=== PATIENT | female | born 1950 | race Caucasian/White ===

== ENCOUNTER 2020-06-30 16:49 | Inpatient (IN) | payer MEDICARE, OTHER ==
[~2020-06-30] VITALS: Ht 152.4 cm; Wt 49.9 kg
[2020-06-30] MEDS ORDERED: ACETAMINOPHEN 325 MG TABLET PO ONE (17:00)
[2020-06-30] MEDS ORDERED: ACETAMINOPHEN 325 MG TABLET ONE (17:03)
--- NOTE | 2020-06-30 17:05 | NUR ---
pt BIB [facility] FROM HOME,C/O RIGHT KNEE PAIN/BRUISE,S/P FALL WHILE WALKING WITH A WALKER LAST NIGHT. VS CHECKED. SEEN BY
[2020-06-30] MEDS ORDERED: GEMF600T5 PO (17:16)
[2020-06-30] MEDS ORDERED: METH5TAB6 PO (17:16)
[2020-06-30] MEDS ORDERED: ZOLP10TA2 PO (17:16)
[2020-06-30] MEDS ORDERED: LOSA1TAB36 PO (17:16)
[2020-06-30] MEDS ORDERED: ACET1TAB23 PO (17:16)
[2020-06-30] MEDS ORDERED: ESCI10TA PO (17:16)
[2020-06-30] MEDS ORDERED: FOLI0.8C PO (17:16)
[2020-06-30] MEDS ORDERED: ASPI-495 PO (17:16)
--- NOTE | 2020-06-30 17:18 | NUR ---
xray by bedside
[2020-06-30 17:44] LABS: BASOPHILS # (AUTO) 0.1 /CMM (0.0-0.2); BASOPHILS % (AUTO) 0.7 % (0.0-2.0); EOSINOPHILS % (AUTO) 0.1 % (0.0-6.0); HEMATOCRIT 36 % (33-45); HEMOGLOBIN 12.3 g/dL (11.5-14.8); LYMPHOCYTES # (AUTO) 0.8 /CMM (0.8-4.8); MEAN CORPUSCULAR HGB CONC 34 g/dl (31.0-36.0); MEAN CORPUSCULAR VOLUME 94 fL (82-100); MONOCYTES # (AUTO) 0.6 /CMM (0.1-1.30); MONOCYTES % (AUTO) 5.6 % (2.0-12.0); NEUTROPHILS % (AUTO) 85.6 % (43.0-81.0); PLATELET COUNT (AUTO) 415 /CMM (150-450); RED BLOOD CELL COUNT(AUTO) 3.85 MIL/uL (4.0-5.2); WHITE BLOOD COUNT (AUTO) 10.5 K/uL (4.3-11.0)
--- NOTE | 2020-06-30 17:53 | NUR ---
covid swab done sent to lab
[2020-06-30 17:54] LABS: CALCIUM, SERUM 9.2 mg/dL (8.5-10.1); CREATININE 0.4 mg/dL (0.6-1.3)
--- NOTE | 2020-06-30 18:34 | NUR ---
CALLED OFFICE OF DR DEXTER FOR CONSULT, SILVIA BUSTILLOS
--- NOTE | 2020-06-30 18:55 | NUR ---
DR DEXTER SPEAKING WITH DR DELGADO
--- NOTE | 2020-06-30 19:05 | NUR ---
PT AAOX4, VSS, RESPIRATIONS EVEN AND UNLABORED W/ NAD NOTED. PT CONNECTED TO THE MONITOR AND POX.CALL LIGHT WITHIN REACH. WILL CONTINUE TO MONITOR THE PT.
--- NOTE | 2020-06-30 19:32 | NUR ---
REC'D NEG COVID RESULTS. AWARE. CALLED NURSING SUP FOR BED
--- NOTE | 2020-06-30 19:50 | NUR ---
Report received from ER nurse. Patient is being admitted for closed fracture of right distal femur.
--- NOTE | 2020-06-30 19:57 | NUR ---
REPORT GIVEN TO JADA TRUJILLO FOR ARACELIS
[2020-06-30] MEDS ORDERED: ONDANSETRON HCL/PF 4 MG/2 ML VIAL IVP PRN (20:00)
[2020-06-30] MEDS ORDERED: HYDROCODONE/APAP 5/325MG TABLET PO PRN (20:00)
[2020-06-30] MEDS ORDERED: MAGNESIUM HYDROXIDE 30 ML UDC PO PRN (20:00)
[2020-06-30] MEDS ORDERED: ACETAMINOPHEN 325 MG TABLET PO PRN (20:00)
[2020-06-30] MEDS ORDERED: HEPARIN SODIUM, PORCINE 5000 UNITS/1 ML VIAL SQ ONE (20:00)
--- NOTE | 2020-06-30 20:15 | NUR ---
Patient transferred to [facility]. Patient is a 69 y/o female admitted for closed fracture of right distal femur, S/P fall at home, under Lizzie Mcadams DNP. Alert, oriented x 4. Able to make needs known. No s/s of acute distress and discomfort noted. Patient noted with IV on right AC 18 g, patent and intact, no s/s of infiltration noted, no swelling. Noted with discoloration and swelling on right knee, and swelling on right foot. Patient also noted with redness on sacral area. Patient with orders for NPO after midnight for surgery tomorrow at 13:[address] Ny (Ortho) as ordered. Patient oriented to the environment. Assisted with ADLs and transfers. Fall precautions observed. Call light within reach.
--- NOTE | 2020-06-30 20:18 | NUR ---
PATIENT BROUGHT TO ASSIGNED ROOM FOR ARACELIS.
[2020-06-30 20:50] VITALS: BP 162/81
[2020-07-01] VITALS (10 sets, daily range): BP systolic 125–148; BP diastolic 57–88
--- NOTE | 2020-07-01 01:00 | NUR ---
Patient with orders for Heparin 5,000 units sq x 1. Order clarified with backshoe person MERCHANDISE TEAM MANAGER rere Garcia ok to give. Noted and carried out.
[2020-07-01] MEDS ORDERED: HEPARIN SODIUM, PORCINE 5000 UNITS/1 ML VIAL ONE (01:11)
[2020-07-01] MEDS: MORPHINE SULFATE INJ 2 MG/ML DISP.SYRIN IV PRN ×4 (03:12→21:54)
[2020-07-01] MEDS: IV NS 0.9% 1,000 ML IV PRN ×2 (04:02→12:33)
[2020-07-01 06:43] LABS: BASOPHILS # (AUTO) 0.1 /CMM (0.0-0.2); BASOPHILS % (AUTO) 1.3 % (0.0-2.0); HEMATOCRIT 35 % (33-45); HEMOGLOBIN 11.8 g/dL (11.5-14.8); LYMPHOCYTES # (AUTO) 1.3 /CMM (0.8-4.8); LYMPHOCYTES % (AUTO) 15.9 % (20.0-44.0); MEAN CORPUSCULAR HGB CONC 34 g/dl (31.0-36.0); MEAN CORPUSCULAR VOLUME 94 fL (82-100); MONOCYTES # (AUTO) 0.7 /CMM (0.1-1.30); MONOCYTES % (AUTO) 7.9 % (2.0-12.0); NEUTROPHILS # (AUTO) 6.2 /CMM (1.8-8.9); NEUTROPHILS % (AUTO) 74.9 % (43.0-81.0); PLATELET COUNT (AUTO) 391 /CMM (150-450); RED BLOOD CELL COUNT(AUTO) 3.68 MIL/uL (4.0-5.2); WHITE BLOOD COUNT (AUTO) 8.3 K/uL (4.3-11.0)
--- NOTE | 2020-07-01 07:16 | NUR ---
MS RN OPENING NOTES RECEIVED PT AWAKE IN BED IN NO ACUTE SIGNS OF DISTRESS. A/O X4. ABLE TO MAKE NEEDS KNOWN. SPLINT CAST WITH DRESSING ON RIGHT LEG IN PLACE, PT VERBALIZED THAT PAIN IS BEARABLE AT THIS TIME. PT FOR ORIF RIGHT DISTAL FEMUR TODAY, NPO MAINTAINED. ON ROOM AIR, BREATHING EVEN AND UNLABORED. IVF OF NS AT 75ML/HR RATE INFUSING WELL TO RIGHT FA G#18 VIA IV PUMP. SAFETY MEASURES IN PLACE: BED IN LOWEST LOCKED POSITION WITH SR UP X2. CALL LIGHT W/IN EASY REACH. WILL CONTINUE TO MONITOR PT ACCORDINGLY.
[2020-07-01 07:32] LABS: CALCIUM, SERUM 8.8 mg/dL (8.5-10.1); CREATININE 0.3 mg/dL (0.6-1.3); MAGNESIUM 2.2 mg/dL (1.8-2.4); POTASSIUM 3.6 mmol/L (3.5-5.1)
[2020-07-01] MEDS: LOSARTAN/HCTZ 50-12.5MG/ 1 EA TABLET PO SCH (08:51)
[2020-07-01] MEDS: FOLIC ACID 1 MG TABLET PO SCH (08:51)
[2020-07-01] MEDS: ASPIRIN EC 81 MG TABLET.DR PO SCH (08:51)
[2020-07-01] MEDS: GEMFIBROZIL 600 MG TABLET PO SCH ×2 (08:53→17:09)
[2020-07-01] MEDS: METHIMAZOLE (5MG) 5 MG TABLET PO SCH (08:53)
[2020-07-01] MEDS: ESCITALOPRAM OXALATE (10 MG) 10 MG TABLET PO SCH (08:53)
--- NOTE | 2020-07-01 09:36 | NUR ---
RN NOTES PT C/O OF SHARP PAIN ON RIGHT KNEE WITH SCALE OF 9/10. PRN MORPHINE SULFATE 2MG/IM IVP ADMINISTERED AT 0933. WILL CONTINUE TO MONITOR AND REASSESS PT.
[2020-07-01] MEDS ORDERED: ANESTHESIA TRAY IN PYXIS 1 EA TRAY MC ONE (10:29)
[2020-07-01] MEDS ORDERED: LIDOCAINE 1% INJ 50 ML MDV IJ ONE (10:30)
[2020-07-01] MEDS ORDERED: BUPIVACAINE MPF 0.5% W/EPI INJ 30 ML VIAL ONE (10:30)
[2020-07-01] MEDS ORDERED: BUPIVACAINE 0.5 % PF 150 MG/30 ML VIAL ONE (10:32)
[2020-07-01 11:27] LABS: THYROID STIMULATING HORMONE 3.932 uIU/mL (0.358-3.74)
--- NOTE | 2020-07-01 13:29 | NUR ---
RN NOTES PT WHEELED BY O.R. NURSES TO SURGERY FOR ORIF OF RIGHT FEMUR FRACTURE BY DR DEXTER.
[2020-07-01] MEDS ORDERED: FENTANYL PF 100MCG/2ML AMPUL ONE (14:43)
[2020-07-01] MEDS ORDERED: VANCOMYCIN 1 GM VIAL ONE (15:07)
[2020-07-01] MEDS ORDERED: LABETALOL HCL IV 100MG VIAL ONE (15:46)
[2020-07-01] MEDS ORDERED: HYDROMORPHONE 1 MG/1 ML DISP.SYRIN ONE (15:51)
[2020-07-01 15:57] LABS: BILIRUBIN,URINE MODERATE (NEGATIVE); BLOOD, URINE NEGATIVE Ery/uL (NEGATIVE); COLOR,URINE YELLOW (YELLOW); LEUKOCYTE ESTERASE ,URINE NEGATIVE (NEGATIVE); NITRITE, URINE NEGATIVE (NEGATIVE); PROTEIN,URINE TRACE mg/dl (NEGATIVE); UGLUCOSE NEGATIVE (NEGATIVE)
[2020-07-01 16:28] LABS: BACTERIA,URINE RARE /HPF (None Seen); RBC,URINE 0-2 /HPF (0-2); WBC,URINE 0-2 /HPF (0-3)
[2020-07-01 16:29] LABS: URINE AMORPHOUS URATE Many /HPF (None Seen)
[2020-07-01 16:35] LABS: EOSINOPHIL,URINE None Seen
--- NOTE | 2020-07-01 16:47 | NUR ---
RN NOTES PT RETURNED TO UNIT S/P ORIF OF RIGHT DISTAL FEMUR BY DR DEXTER. PT IS AWAKE. A/O X4. VERBALIZED THAT PAIN IS TOLERABLE AT THIS TIME. DRESSING ON RIGHT LEG C/D/I AND IMMOBILIZER IN PLACE. V/S CHECKED AND RECORDED. ALL POST-OP ORDERS RECEIVED AND CARRIED. WILL CONTINUE TO MONITOR PT
[2020-07-01 17:07] LABS: CREATININE, URINE 282.5 MG/DL (30.0-125.0); URINE TOTAL PROTEIN 63.3 mg/dL (0-11.9)
[2020-07-01] MEDS: IV D5/0.45 NACL W/20 MEQ KCL 1L IV PRN ×2 (17:46)
--- NOTE | 2020-07-01 18:03 | NUR ---
RN NOTES PT C/O OF ACHING AND THROBBING PAIN ON RIGHT LEG WITH SCALE OF 8/10. PRN MORPHINE SULFATE 2MG/IM IVP ADMINISTERED AT 1801. WILL CONTINUE TO MONITOR AND REASSESS PT.
--- NOTE | 2020-07-01 18:36 | NUR ---
MS RN CLOSING NOTES PT IN BED ASLEEP AT THIS TIME, EASILY AWAKENS. A/O X4. ABLE TO MAKE NEEDS KNOWN. DRESSING ON RIGHT LEG C/D/I WITH IMMOBILIZER IN PLACE. NWB ON RIGHT LEG ENFORCED. ON ROOM AIR, BREATHING EVEN AND UNLABORED, NO SOB NOTED THROUGHOUT THE DAY. IVF OF D5 1/2 NS + KCL 20MEQ AT 75ML/HR INFUSING WELL TO RIGHT FA G#18 VIA IV PUMP, NO S/S OF INFILTRATIONS AT SITE NOTED. ALL NEEDS AND CARE ATTENDED WELL. SAFETY MEASURES IN PLACE: BED IN LOWEST LOCKED POSITION WITH SR UP X2. CALL LIGHT W/IN EASY REACH OF PT. WILL ENDORSE ARACELIS TO INCOMING NIGHT NURSE.
--- NOTE | 2020-07-01 20:30 | NUR ---
TELEMARKETING AGENT: RECEIVED REPORT FROM ALEXANDRA AT 1920. PT A/O X4, ON RA RESPIRATIONS EVEN AND UNLABORED. IV ACCESS PATENT AND FLUSHING WELL, INFUSING WITH D5 1/2 NS WITH 20MEQ KCL AT 75ML/HR. S/P RIGHT ORIF 07/01, DRESSING C/D/I, NO ACTIVE BLEEDING NOTED, KNEE IMMOBILIZER IN PLACED, SCD IN USE FOR LLE. BLE OFFLOADED ON PILLOWS. DISCUSSED PLAN OF CARE TO PT. SAFETY PRECAUTIONS FOR FALL INITIATED, CALL LIGHT IN REACH, WILL CONTINUE MONITORING PT.
--- NOTE | 2020-07-01 21:00 | NUR ---
RN NOTES: MADE RASCHEL KNITTING MACHINE OPERATOR MD AWARE OF VTE SCORE S/P RIGHT ORIF 07/01, PER MD WILL TAKE A LOOK AT IT.
--- NOTE | 2020-07-01 21:54 | NUR ---
PRN MORPHINE: PT C/O 04/21 PAIN ON RIGHT LEG, S/P RIGHT ORIF 07/01, REQUESTING FOR PAIN MEDICATION, PRN MORPHINE 2MG IVP ADMINISTERED TO PT AT THIS TIME. WILL CONTINUE TO MONITOR AND REASSESS PT.
[2020-07-01] MEDS: ANCEF 1 GM/50 ML D5W IV SCH ×2 (23:05)
[2020-07-02] VITALS: BP 132/88
[2020-07-02] MEDS: ZOLPIDEM TARTRATE 10 MG TABLET PO PRN (00:56)
--- NOTE | 2020-07-02 00:56 | NUR ---
prn ambien: pt requested for sleeping pill, prn ambien administered at this time.
--- NOTE | 2020-07-02 02:00 | NUR ---
rn notes: pt sleeping at this time, appears comfortable, no facial grimace noted
[2020-07-02] MEDS: MORPHINE SULFATE INJ 2 MG/ML DISP.SYRIN IV PRN ×4 (05:47→19:48)
[2020-07-02] MEDS: IV D5/0.45 NACL W/20 MEQ KCL 1L IV PRN ×2 (05:47)
[2020-07-02] MEDS: ANCEF 1 GM/50 ML D5W IV SCH ×2 (06:05)
[2020-07-02 06:35] LABS: BASOPHILS # (AUTO) 0.1 /CMM (0.0-0.2); BASOPHILS % (AUTO) 0.7 % (0.0-2.0); EOSINOPHILS % (AUTO) 0.2 % (0.0-6.0); HEMATOCRIT 30 % (33-45); LYMPHOCYTES # (AUTO) 1.5 /CMM (0.8-4.8); LYMPHOCYTES % (AUTO) 21.6 % (20.0-44.0); MEAN CORPUSCULAR HGB CONC 34 g/dl (31.0-36.0); MEAN CORPUSCULAR VOLUME 95 fL (82-100); MONOCYTES # (AUTO) 0.5 /CMM (0.1-1.30); MONOCYTES % (AUTO) 7.2 % (2.0-12.0); NEUTROPHILS # (AUTO) 4.9 /CMM (1.8-8.9); NEUTROPHILS % (AUTO) 70.3 % (43.0-81.0); PLATELET COUNT (AUTO) 322 /CMM (150-450); RED BLOOD CELL COUNT(AUTO) 3.12 MIL/uL (4.0-5.2)
--- NOTE | 2020-07-02 06:45 | NUR ---
end of shift report: pt vs remains stable. prn morphine ivp administered as ordered for pt's c/o right leg pain. rle dressing c/d/i, no active bleeding noted, knee immobilizer kept in placed. ble kept offloaded on pillows. scd in use. i access remains patent and flushing well, infusing with d5 /12 ns + 20meq kcl at 75ml/hr, no s/s of iv infiltration noted. remains afebrile. PLAN OF CARE: Cont IV hydration, iv atb, pain management, pending PT eval.Safety precautions for fall remains engaged, call light in reach, will endorse to day rn for continuity of care.
[2020-07-02 06:51] LABS: ALBUMIN 2.9 g/dL (3.4-5.0); BILIRUBIN,TOTAL 0.4 mg/dL (0.2-1.0); CALCIUM, SERUM 8.6 mg/dL (8.5-10.1); CREATININE 0.5 mg/dL (0.6-1.3); MAGNESIUM 2.2 mg/dL (1.8-2.4); POTASSIUM 4.6 mmol/L (3.5-5.1); TOTAL PROTEIN, SERUM 6.4 g/dL (6.4-8.2)
[2020-07-02 08:00] VITALS: BP 125/85
--- NOTE | 2020-07-02 08:00 | NUR ---
RECEIVED PT. IN AM ALERT AND ORIENTED X4.SKIN WARM AND DRY.VS STABLE.
[2020-07-02] MEDS: FOLIC ACID 1 MG TABLET PO SCH (09:25)
[2020-07-02] MEDS: GEMFIBROZIL 600 MG TABLET PO SCH ×2 (09:25→17:46)
[2020-07-02] MEDS: ASPIRIN EC 81 MG TABLET.DR PO SCH (09:25)
[2020-07-02] MEDS: METHIMAZOLE (5MG) 5 MG TABLET PO SCH (09:25)
[2020-07-02] MEDS: ESCITALOPRAM OXALATE (10 MG) 10 MG TABLET PO SCH (09:25)
[2020-07-02] MEDS: LOSARTAN/HCTZ 50-12.5MG/ 1 EA TABLET PO SCH (09:25)
--- NOTE | 2020-07-02 11:30 | NUR ---
NOTED NO PT ORDER. CALL OUT TO DR. DEXTER TO OBTAIN PT. JEREMIAS.PHYSICAL THERAPIST TO BE HERE TOMORROW TO SEE PT.
--- NOTE | 2020-07-02 13:00 | NUR ---
iv leaking,removed and restart in rt. forearm with #22 gauge angio.
[2020-07-02] MEDS: ENOXAPARIN SODIUM 40 MG/0.4 ML DISP.SYRIN SQ SCH (13:29)
--- NOTE | 2020-07-02 16:00 | NUR ---
MED. X2 WITH MORPHINE INJ.RT. LEG DRESSING DRY AND INTACT.IMMOBILIZER IN PLACE.
[2020-07-02 16:05] VITALS: BP 94/57
--- NOTE | 2020-07-02 17:37 | NUR ---
RASH NOTED CRUZ. BUTTOCKS,PHOTO TAKEN,MEPILEX APPLIED WD. CONSULT ORDERED.
[2020-07-02] MEDS: IV NS 0.9% 1,000 ML IV PRN (19:56)
[2020-07-02 20:00] VITALS: BP 108/68
--- NOTE | 2020-07-02 20:00 | NUR ---
RN NOTES PATIENT IN BED, ALERT AND ORIENTED X4, STABLE ON ROOM AIR, IMMOBILIZER ON, DRESSING CLEAN DRY AND INTACT, PUT ON BED KHANNA, VOIDING SPONTANEOUSLY, WILL CONTINUE TO MONITOR. CALL LIGHT WITHIN REACH.
[2020-07-02 22:00] VITALS: BP 132/77
[2020-07-03] MEDS: ZOLPIDEM TARTRATE 10 MG TABLET PO PRN (00:53)
[2020-07-03] MEDS: MORPHINE SULFATE INJ 2 MG/ML DISP.SYRIN IV PRN ×3 (02:14→20:46)
[2020-07-03 06:21] LABS: BASOPHILS # (AUTO) 0.1 /CMM (0.0-0.2); BASOPHILS % (AUTO) 0.8 % (0.0-2.0); EOSINOPHILS % (AUTO) 0.3 % (0.0-6.0); HEMATOCRIT 27 % (33-45); HEMOGLOBIN 9.2 g/dL (11.5-14.8); LYMPHOCYTES # (AUTO) 1.9 /CMM (0.8-4.8); LYMPHOCYTES % (AUTO) 19.9 % (20.0-44.0); MEAN CORPUSCULAR HGB CONC 34 g/dl (31.0-36.0); MEAN CORPUSCULAR VOLUME 94 fL (82-100); MONOCYTES # (AUTO) 0.7 /CMM (0.1-1.30); MONOCYTES % (AUTO) 7.4 % (2.0-12.0); NEUTROPHILS # (AUTO) 6.8 /CMM (1.8-8.9); NEUTROPHILS % (AUTO) 71.6 % (43.0-81.0); PLATELET COUNT (AUTO) 316 /CMM (150-450); RED BLOOD CELL COUNT(AUTO) 2.86 MIL/uL (4.0-5.2); WHITE BLOOD COUNT (AUTO) 9.5 K/uL (4.3-11.0)
[2020-07-03 06:24] LABS: ALBUMIN 2.8 g/dL (3.4-5.0); BILIRUBIN,TOTAL 0.5 mg/dL (0.2-1.0); CALCIUM, SERUM 8.1 mg/dL (8.5-10.1); CREATININE 0.4 mg/dL (0.6-1.3); MAGNESIUM 1.6 mg/dL (1.8-2.4); PHOSPHORUS 2.5 mg/dL (2.5-4.9); POTASSIUM 3.6 mmol/L (3.5-5.1); TOTAL PROTEIN, SERUM 6.2 g/dL (6.4-8.2); URIC ACID 1.7 mg/dL (2.6-7.2)
--- NOTE | 2020-07-03 06:37 | NUR ---
RN NOTES ALERT AND AWAKE, STABLE ON ROOM AIR, PAIN MANAGED BY MORPHINE WITH ADEQUATE RELIEF, NWB TO RIGHT LEG, IMMOBILIZER IN PLACE, DENIES NUMBNESS, ABLE TO WIGGLE TOES, USES BED PAIN TO VOID, FOR PT EVAL AND TREATMENT.
[2020-07-03] MEDS: IV NS 0.9% 1,000 ML IV PRN ×2 (06:59→20:27)
--- NOTE | 2020-07-03 07:53 | NUR ---
MS/RN OPENING NOTE RECEIVED PATIENT FROM DIRECTIONAL SURVEY DRAFTER NURSE. A/O X4 ABLE TO VERBALIZE NEEDS. PATIENT ON ROOM AIR, TOLERATING WELL. BREATHING EVEN, NON LABORED, NO SOB NOTED. RFA #22 INTACT AND PATENT, NO SIGNS OF INFILTRATION, SWELLING, REDNESS, WARM TO TOUCH NOTED. IV FLUIDS RUNNING ORDERED. SAFETY MEASURES IN PLACE BED LOCKED AND IN LOWEST POSITION, BED ALARM ACTIVATED, CALL LIGHT WITHIN REACH. WILL CONTINUE TO MONITOR.
[2020-07-03 08:00] VITALS: BP 133/74
[2020-07-03] MEDS: LOSARTAN/HCTZ 50-12.5MG/ 1 EA TABLET PO SCH (08:43)
[2020-07-03] MEDS: GEMFIBROZIL 600 MG TABLET PO SCH ×2 (08:43→16:09)
[2020-07-03] MEDS: METHIMAZOLE (5MG) 5 MG TABLET PO SCH (08:43)
[2020-07-03] MEDS: FOLIC ACID 1 MG TABLET PO SCH (08:43)
[2020-07-03] MEDS: ESCITALOPRAM OXALATE (10 MG) 10 MG TABLET PO SCH (08:43)
[2020-07-03] MEDS: ASPIRIN EC 81 MG TABLET.DR PO SCH (08:43)
[2020-07-03 10:12] LABS: PTH, INTACT 32 pg/mL (15-65)
[2020-07-03] MEDS: Magnesium 1GM/D5W 100ML PREMIX 100 ML IV SCH ×2 (11:32→12:11)
[2020-07-03] MEDS: ENOXAPARIN SODIUM 40 MG/0.4 ML DISP.SYRIN SQ SCH (12:11)
[2020-07-03 16:00] VITALS: BP 144/93
--- NOTE | 2020-07-03 19:21 | NUR ---
MS/RN CLOSING NOTE PATIENT REMAINS IN STABLE CONDITION. A/0 X4 ABLE TO VERBALIZE NEEDS. PATIENT ON ROOM AIR, TOLERATING WELL. BREATHING EVEN, NON LABORED, NO SOB NOTED. DRESS TO RIGHT FEMUR DRY AND INTACT. NO PAIN MEDICATION REQUESTED. ALL NEEDS ATTENDED THROUGHOUT THE SHIFT. WILL ENDORSE TO SENIOR WIND ENERGY CONSULTANT.
--- NOTE | 2020-07-03 20:30 | NUR ---
GPS RN NO/MURTAZA: RIGHT LEG PAIN PT C/O OF 8/10 RIGHT LEG PAIN. PT REQUESTED PAIN MEDICATION. OFFERED MORPHINE INJ PRN ORDERED. PT AGREED AN TOLERATED MEDICATION WELL. CONTINUE TO MONITOR. NO SOB. NO RESP DISTRESS.
[2020-07-03 20:35] VITALS: BP 135/79
--- NOTE | 2020-07-03 22:58 | NUR ---
MSTeddy RN NOTES: OPENING RECEIVED PATIENT IN THE BED A/O X3, NO ACUTE RESPIRATORY DISTRESS. BREATHING EVEN AND UNLABORED. NO SOB. NO PAIN AT THIS TIME. IV ACCESS ON RIGHT ARM AREA INTACT NO REDNESS OR PAIN. PT USING BEDSIDE COMODE NEEDED. PT FALL RISKS. CALL LIGHT WITHIN TO REACH, SAFETY PRECAUTION MAINTAINED ALL THE TIME. Addendum: 07/03/20 at 2300 by JOSE ALFREDO BALL RN PT USING BED KHANNA NEEDED
--- NOTE | 2020-07-03 23:24 | NUR ---
GPS RN NOTES: REFUSED RIGHT KNEE PICTURE PT REFUSED WEEKLY PICTURE SKIN ASSESSMENT ON HER RIGHT KNEE. PT STATED SHE IS ALREADY TOO COMFORTABLE OF RIGHT NOW AND REFUSES PICTURE ON HER RIGHT KNEE. PT REQUESTS FOR THE DAY TIME INSTEAD. PT ALLOWED PICTURE OF HER SACRAL AREA. PICTURE TAKEN AND PUT IN THE CHART. EXPLAIN RISKS AND BENEFITS. PT STILL REFUSED X3. CONTINUE TO MONITOR. WILL ENDORSE TO DAY SHIFT
--- NOTE | 2020-07-04 00:29 | NUR ---
GPS RN NOTES: REFUSED IV INSERTION PT PULLED OUT HER IV ON HER RIGHT FA. NO ACTIVE BLEEDING OR REDNESS AT THIS TIME. ASKED PT FOR IV REINSERTION, PT REFUSED IV INSERTION. PT STATED, "I DON'T WANT YOU TO DO THAT NOW. " PT INCREASED AGITATION. EXPLAIN RISKS AND BENEFITS. PT STILL REFUSED X3. WILL TRY AGAIN LATER. WILL ENDORSE TO DAY SHIFT. CONTINUE TO MONITOR
[2020-07-04] MEDS: ZOLPIDEM TARTRATE 10 MG TABLET PO PRN (01:19)
--- NOTE | 2020-07-04 01:20 | NUR ---
GPS RN NOTES: INSOMNIA PT C/O UNABLE TO SLEEP. VITALS CHECKED WNL. PT REQUESTED AMBIEN PRN ORDERED. PT AGREED AND TOLERATED MEDICATION WELL. CONTINUE TO MONITOR.
--- NOTE | 2020-07-04 05:42 | NUR ---
MS/RN CLOSING NOTE PATIENT REMAINS IN STABLE CONDITION. A/0 X3-4 ABLE TO VERBALIZE NEEDS. PATIENT ON ROOM AIR, TOLERATING WELL. BREATHING EVEN, NON LABORED, NO SOB NOTED. DRESS TO RIGHT FEMUR DRY AND INTACT. NO PAIN AT THIS TIME. ALL NEEDS ATTENDED THROUGHOUT THE SHIFT. PT STILL REFUSED IV INSERTION. WILL ENDORSE TO DAY SHIFT TO TRY AGAIN. CONTINUE TO MONITOR
--- NOTE | 2020-07-04 07:03 | NUR ---
MS RN OPENING NOTES RECEIVED PT AWAKE IN BED AT THIS TIME. PT AOX4. PT ABLE TO MAKE NEEDS KNOWN. NO SOB NOTED, NO S/S OF ANY ACUTE DISTRESS NOTED. NO C/O PAIN AT THIS TIME. RESPIRATIONS ARE EVEN AND UNLABORED. PT IS STABLE ON RA. NO IV ACCESS NOTED. PER CUSTOM SHOE DESIGNER AND MAKER NURSE, PT REFUSED IV INSERTION. PT MADE AWARE TO CALL FOR ASSISTANCE. SAFETY PRECAUTION IN PLACE AND MAINTAINED AT ALL TIMES. BED IN LOWEST LOCKED POSITION, HOB ELEVATED, SIDE RAILS UP X 2, CALL LIGHT AND TABLE WITHIN REACH. WILL CONTINUE TO MONITOR.
[2020-07-04 08:00] VITALS: BP 124/71
[2020-07-04] MEDS ORDERED: LOSARTAN POTASSIUM 50 MG TABLET PO SCH (09:00)
[2020-07-04] MEDS: ASPIRIN EC 81 MG TABLET.DR PO SCH (09:05)
[2020-07-04] MEDS: ESCITALOPRAM OXALATE (10 MG) 10 MG TABLET PO SCH (09:06)
[2020-07-04] MEDS: GEMFIBROZIL 600 MG TABLET PO SCH ×2 (09:06→17:16)
[2020-07-04] MEDS: FOLIC ACID 1 MG TABLET PO SCH (09:06)
[2020-07-04] MEDS: METHIMAZOLE (5MG) 5 MG TABLET PO SCH (09:06)
[2020-07-04] MEDS: MORPHINE SULFATE INJ 2 MG/ML DISP.SYRIN IV PRN (09:48)
--- NOTE | 2020-07-04 09:50 | NUR ---
PT C/O OF ACHING, RIGHT LEG PAIN OF 8/10 AT THIS TIME. PT NOTED GRASPING RIGHT LEG. VS WNL. PER PT REQUEST MORPHINE 2MG IV Q2HR FOR SEVERE PAIN WAS ADMINISTERED AT THIS TIME. WILL CONTINUE TO MONITOR
[2020-07-04] MEDS ORDERED: ENOX40DI SQ (11:09)
[2020-07-04] MEDS ORDERED: LOSA50TA3 PO (11:09)
[2020-07-04 11:20] LABS: BASOPHILS # (AUTO) 0.1 /CMM (0.0-0.2); BASOPHILS % (AUTO) 1.1 % (0.0-2.0); EOSINOPHILS % (AUTO) 0.7 % (0.0-6.0); HEMATOCRIT 28 % (33-45); HEMOGLOBIN 9.5 g/dL (11.5-14.8); LYMPHOCYTES # (AUTO) 1.3 /CMM (0.8-4.8); LYMPHOCYTES % (AUTO) 15.9 % (20.0-44.0); MEAN CORPUSCULAR HGB CONC 34 g/dl (31.0-36.0); MEAN CORPUSCULAR VOLUME 95 fL (82-100); MONOCYTES # (AUTO) 0.6 /CMM (0.1-1.30); NEUTROPHILS # (AUTO) 6.2 /CMM (1.8-8.9); NEUTROPHILS % (AUTO) 75.3 % (43.0-81.0); PLATELET COUNT (AUTO) 345 /CMM (150-450); RED BLOOD CELL COUNT(AUTO) 2.96 MIL/uL (4.0-5.2); WHITE BLOOD COUNT (AUTO) 8.3 K/uL (4.3-11.0)
[2020-07-04 11:50] LABS: CALCIUM, SERUM 8.3 mg/dL (8.5-10.1); CREATININE 0.4 mg/dL (0.6-1.3); POTASSIUM 3.7 mmol/L (3.5-5.1)
[2020-07-04] MEDS: ENOXAPARIN SODIUM 40 MG/0.4 ML DISP.SYRIN SQ SCH (12:47)
[2020-07-04 15:07] LABS: *SPE A/G RATIO 1.1 (0.7-1.7); *SPE ALPHA-1-GLOBULIN 0.3 g/dL (0.0-0.4); *SPE ALPHA-2-GLOBULIN 0.8 g/dL (0.4-1.0); *SPE BETA GLOBULIN 0.7 g/dL (0.7-1.3); *SPE GLOBULIN, TOTAL 2.7 g/dL (2.2-3.9); *SPE M-SPIKE Not Observed g/dL (Not Observed); *SPEGAMMA GLOBULIN 0.9 g/dL (0.4-1.8)
[2020-07-04 16:00] VITALS: BP 121/64
--- NOTE | 2020-07-04 19:10 | NUR ---
MS WINDOW ASSEMBLER NOTES PT DISCHARGED TO [facility] AT THIS TIME TRANSPORTED BY TWO AMBULANCE PERSONNEL, REPORT GIVEN TO JADA MCFARLAND. PT IN MEDICALLY STABLE CONDITION. ALL DISCHARGE INSTRUCTIONS PROVIDED, PT VERBALIZE UNDERSTANDING. PICTURES FILED IN CHART. BELONGINGS ACCOUNTED FOR, SIGNED BY PT AND GIVEN TO PATIENT.COPY OF BELONGING LIST FILED IN CHART. IV ACCESS REMOVED. PRESSURE APPLIED, SECURED WITH GAUZE AND TAPE. NO S/O BLEEDING OR INFILTRATION NOTED.ID BAND REMOVED. MELISSA, CHARGE NURSE AND DR WADSWORTH AWARE.
== END 2020-07-04 19:15 | DRG 481 ==
LOC: ER 16:59 → MED 20:05
PROVIDERS: ADMIT Nurse Practitioner Acute Care; ATTEND Nurse Practitioner Acute Care
PROC: 0QSB04Z Reposition Right Lower Femur with Internal Fixation Device, Open Approach (ICD-10-PCS; principal; 2020-07-01)
DX: S79.191A Other physeal fracture of lower end of right femur, initial encounter for closed fracture (principal); E87.1 Hypo-osmolality and hyponatremia; D68.69 Other thrombophilia; W18.30XA Fall on same level, unspecified, initial encounter; Y93.9 Activity, unspecified; I10 Essential (primary) hypertension; E78.5 Hyperlipidemia, unspecified; E83.42 Hypomagnesemia; Z79.82 Long term (current) use of aspirin; Z86.12 Personal history of poliomyelitis; Z79.01 Long term (current) use of anticoagulants; D64.9 Anemia, unspecified; E86.1 Hypovolemia; M89.8X7 Other specified disorders of bone, ankle and foot; T50.2X5A Adverse effect of carbonic-anhydrase inhibitors, benzothiadiazides and other diuretics, initial encounter; E05.90 Thyrotoxicosis, unspecified without thyrotoxic crisis or storm; Y92.009 Unspecified place in unspecified non-institutional (private) residence as the place of occurrence of the external cause
CPT/HCPCS: 36415; 71045-TC; 73552; 73560-TC; 73590-TC; 80048-TC; 80053-TC; 80061-TC; 81001; 82533; 82550-TC; 82570-TC; 82728-TC; 83540-TC; 83735-TC; 83970; 84100-TC; 84155; 84155-TC; 84165; 84300-TC; 84439-TC; 84443-TC; 84550-TC; 85025-TC; 85610-TC; 86850-TC; 87081-TC; 93307-TC; A6209; C1713; C9803; G0378; J0690; J1100; J1170; J1644; J1650; J1885; J2270; J2405; J2704; J3010; J3370; J3475; J3480; J3490; J7030; J7060; L1830